=== PATIENT | male | born 1990 | race American Indian/Alaskan Native ===

== ENCOUNTER 2017-04-01 13:32 | Emergency (ER) | payer OTHER ==
[2017-04-01 13:47] VITALS: BP 121/74
[2017-04-01] MEDS ORDERED: XYLOCAINE 1% 20 mL INFILTRATI ONE ×2 (16:03→18:25)
--- NOTE | 2017-04-01 16:03 | Emergency Department Report ---
ED Laceration [facility] - HPI Chief Complaint: Wound/Laceration Stated Complaint: CUT SELF ON THE JOB Time Seen by Provider: 04/01/17 16:02 Occurred When: Today Location: Upper Extremity Severity: mild Tetanus Status: Not up to Date Laceration Symptoms: Yes Pain, No Foreign Body Sensation, No Numbness, No Weakness ED Review of Systems ROS: Stated complaint: CUT SELF ON THE JOB Other details as noted in HPI Comment: All other systems reviewed and negative Constitutional: no symptoms reported, see HPI Eyes: as per HPI ENT: as per HPI Respiratory: no symptoms reported, see HPI Cardiovascular: as per HPI Endocrine: no symptoms reported Gastrointestinal: as per HPI Genitourinary: as per HPI Musculoskeletal: as per HPI Skin: as per HPI Neurological: as per HPI Psychiatric: as per HPI Hematological/Lymphatic: as per HPI ED Past Medical Hx - Past Medical History Previous Medical History?: No - Surgical History Past Surgical History?: No - Social History Smoking Status: Current Every Day Smoker Substance Use Type: None - Medications Home Medications: Home Medications Medication Instructions Recorded Confirmed Last Taken Type Amoxicillin [Trimox CAP] 500 mg PO BID #20 capsule 04/01/17 Unknown Rx traMADol [Ultram] 50 mg PO Q6HR PRN #10 tablet 04/01/17 Unknown Rx Laceration Physical Exam - Exam General: Vital signs noted. No distress. Alert and acting appropriately. Wound Length (cm): 2 Laceration Location: Upper Extremity (finger) Laceration Exam: Yes Normal Distal CMS, No Foreign Body, No Exposed Tendon, Vessel, or Nerve, No Tendon Injury ED Course Vital Signs 04/01/17 13:44 Temperature 98.3 F Pulse Rate 70 Respiratory 18 Rate Blood Pressure 121/74 O2 Sat by Pulse 98 Oximetry - Reevaluation(s) Reevaluation #1: 04/01/17 18:26 sp lac at work today flap of skin created n/v intact full rom rapid cap refill good pulses no other injury xray noted medicated wound closed dc home w dc instructions w - Laceration /Wound Repair finger Wound Location: upper extremity Irrigated w/ Saline (ccs): 2 Betadine Prep?: Yes Anesthesia: 1% Lidocaine Volume Anesthetic (ccs): 2 Wound Debrided: moderate Wound Repaired With: sutures, Steri-strips Suture Size/Type: 4:0 Number of Sutures: 6 Layer Closure?: No Sterile Dressing Applied?: Yes ED Medical Decision Making - Medical Decision Making lac repair n/v intact full rom extends and flexes finger Critical care attestation.: If time is entered above; I have spent that time in minutes in the direct care of this critically ill patient, excluding procedure time. ED Disposition Clinical Impression: Laceration of finger Disposition: DC-01 TO HOME OR SELFCARE Is pt being admited?: No Does the pt Need Aspirin: No Condition: Stable Instructions: Laceration (ED), Suture Care (ED) Additional Instructions: ice rest elevate motrin for minor pain ultram for severe pain change dressing every 12 hours wash w soap and water then reapply dressing and frog allow the steri strips to fall off return for suture removal Referrals: PRIMARY CARE, [Primary Care Provider] - 3-5 Days Forms: Work/School Release Form(ED) Time of Disposition: 18:23
[2017-04-01] MEDS ORDERED: ANCEF IM ONE (16:04)
[2017-04-01] MEDS ORDERED: BOOSTRIX IM ONE (16:04)
[2017-04-01] MEDS ORDERED: NORCO 5/325 PO ONE (16:04)
--- NOTE | 2017-04-02 08:33 | XRay Report ---
RIGHT FINGER RADIOGRAPH INDICATION: Laceration. COMPARISON: None similar at this institution. FINDINGS: Single, frontal right hand radiograph suggests mild extrinsic/bandage artifact over the third digit distally. No radiopaque foreign body. Intact bones and joints. CONCLUSION: No acute significant radiographic abnormality, as described. Please correlate. Thank you for the opportunity to participate in this patient's care.
== END 2017-04-01 18:43 | disposition home or self-care (01) ==
LOC: ED 13:32
DX: S61.219A Laceration without foreign body of unspecified finger without damage to nail, initial encounter (principal); F17.200 Nicotine dependence, unspecified, uncomplicated; W45.8XXA Other foreign body or object entering through skin, initial encounter; Y93.9 Activity, unspecified; Y92.9 Unspecified place or not applicable; Y99.9 Unspecified external cause status
CPT/HCPCS: 12001; 73140; 90471; 90715; 96372; 99283; J0690